=== PATIENT | female | born 1965 | race Caucasian/White ===

== ENCOUNTER 2022-03-22 19:21 | Emergency (ER) | payer OTHER ==
[2022-03-22] MEDS: methylPREDNISolone Acetate 40 MG/ML SDV IM ONE (20:13)
== END 2022-03-22 20:19 | disposition home or self-care (01) ==
LOC: VM.ED 19:21
DX: M54.42 Lumbago with sciatica, left side (principal)
CPT/HCPCS: 96372; 99283; J1030